=== PATIENT | male | born 1970 | race Caucasian/White ===

== ENCOUNTER 2018-12-05 00:35 | Inpatient (IN) ==
[2018-12-05] MEDS ORDERED: NS 1,000 ML IV ONE ×3 (00:51→09:46)
[2018-12-05] MEDS ORDERED: FENTANYL IV ONE (00:52)
[2018-12-05 01:36] LABS: BASO# 0.04 X1000 (0.0-0.2); BASO% 0.3 % (0.0-0.8); EOS# 0.15 X1000 (0.0-0.7); EOS% 1.1 % (0.0-10.0); HEMATOCRIT 39.1 % (42.0-52.0); HEMOGLOBIN 13.6 g/dL (14.0-18.0); IMM GRAN# 0.06 X1000 (0.0-0.04); IMM GRAN% 0.4 % (0.0-0.5); LYMPH# 1.98 X1000 (1.2-3.4); LYMPH% 14.8 % (20.5-51.1); MCH 32.3 PG (27-31); MCHC 34.8 g/dL (33-37); MCV 92.9 FL (81-99); MONO# 0.88 X1000 (0.11-0.59); MONO% 6.6 % (1.7-9.3); MPV 10.6 FL (7.4-10.4); NEUT# 10.23 X1000 (1.4-6.5); NEUT% 76.8 % (42.2-75.2); PLT 201 X1000 (130-400); RBC 4.21 XMIL (4.7-6.1); RDW 13.6 % (11.5-14.5); WBC 13.34 X1000 (4.8-10.8)
[2018-12-05 02:11] LABS: AGAP 15; ALBUMIN 3.8 g/dL (3.5-5.0); ALKALINE PHOSPHATASE 66 U/L (32-122); BUN 14 mg/dL (8-22); CALCIUM 8.5 mg/dL (8.8-10.2); CHLORIDE 99 mmol/L (98-107); COSMO 271; CREATININE 1.1 mg/dL (0.7-1.2); ESTIMATED GFR > 60; GLUCOSE 145 mg/dL (70-104); POTASSIUM 3.7 mmol/L (3.5-5.1); SODIUM 134 mmol/L (136-145); TCO2 21 mmol/L (25-35); TOTAL PROTEIN 7.2 g/dL (6.3-8.3)
[2018-12-05] MEDS ORDERED: DILAUDID IV ONE ×3 (02:26→09:22)
[2018-12-05] MEDS ORDERED: MORPHINE IV PRN (02:29)
[2018-12-05] MEDS ORDERED: DILAUDID IM PRN (02:29)
[2018-12-05] MEDS ORDERED: TYLENOL PO PRN (02:29)
--- NOTE | 2018-12-05 02:29 | PROVIDER DOCUMENTATION ---
This chart was entered by Priyanka Pena Scribe, acting as scribe for Rigo Serrato MD. HPI-Abdominal Pain/GI Problem - General Chief Complaint: Abdominal Pain Stated Complaint: PANCREATITIS Time Seen by Provider: 12/05/18 00:49 Source: patient Allergies/Adverse Reactions: Patient Allergies Allergy/AdvReac Type Severity Reaction Status Date / Time No Known Allergies Allergy Verified 12/05/18 00:42 Home Medications: Home Medication List Medication Instructions Recorded Confirmed Last Taken Type LISINOpril [Prinivil] 20 mg PO DAILY 12/05/18 12/05/18 Unknown History Omeprazole 40 mg PO DAILY 12/05/18 12/05/18 Unknown History Pravastatin Sodium 20 mg PO DAILY 12/05/18 12/05/18 Unknown History - History of Present Illness-ABD Nature of Presenting Problems: 48yom presents to ED cc epigastric abdominal pain that started after eating yogurt a few hrs ago and some vomiting. Pt reports he had pancreatitis 4yrs ago and this episode feels the same. Pt has hx of hyperlipidemia. Pt is non-toxic in appearance. Abdominal Pain Onset Location: reports: epigastric Pain Radiation: reports: no radiation Quality of Pain: reports: sharp, tightness Severity in ED: reports: moderate Onset/Duration: reports: 1-3 hours ago Timing: reports: still present, getting worse Activities at Onset: reports: eating Exposure to sick contacts?: No Modifying Factors: worse with: movement Associated Symptoms: reports: nausea, vomiting Last BM: unsure Rectal Bleeding: reports: none Rectal Pain: reports: none Emesis Description: reports: none Bruising or Bleeding Gums?: No Similar Symptoms Previously?: Yes Recently seen or treated by another doctor?: No Review of Systems - Adult - REVIEW OF SYSTEMS - ADULT Constitutional: reports: see HPI. denies: chills, fever, fatique Eyes: reports: no symptoms reported Ears, Nose, Mouth & Throat: reports: no symptoms reported Cardiovascular: reports: no symptoms reported Respiratory: reports: no symptoms reported Gastrointestinal: reports: see HPI, abdominal pain (epigastric), nausea, vomiting. denies: diarrhea Genitourinary: reports: no symptoms reported Musculoskeletal: reports: no symptoms reported Integumentary: reports: no symptoms reported Neurological: reports: no symptoms reported Psychiatric: reports: no symptoms reported Endocrine: reports: no symptoms reported Hematologic/Lymphatic: reports: no symptoms reported Allergic/Immunologic: reports: no symptoms reported All Other Systems: Reviewed and Negative Past History - Adult - PAST MEDICAL HISTORY-ADULT Review of Records: reports: Nursing Assessment Review, Medications Reviewed, Social history reviewed & non-contributory. Major Childhood Illnesses: reports: denies history Cardiovascular: reports: denies history Respiratory: reports: denies history Gastrointestinal: reports: denies history Obstetrical/Gynecological: reports: denies history Genitourinary: reports: denies history Musculoskeletal: reports: denies history Neurological: reports: denies history Endocrine/Immune: reports: denies history Other Conditions: reports: denies history - IMMUNIZATION STATUS Childhood Immunizations: See Nurse Assessment Flu Vaccine: See Nurse Assessment - FAMILY HISTORY Family History: reviewed, not pertinent - SOCIAL HISTORY Smoking: denies Physical Exam-General - PHYSICAL EXAM-ADULT Initial Vital Signs Reviewed: Yes - CONSTITUTIONAL General Appearance: alert, moderate distress. negative: anxious, combative - EYES Eyes: PERRL/EOMI, pink conjunctivae. negative: photophobia - HEAD, EARS, NOSE, MOUTH & THROAT HENMT: moist mucous membranes, normal ENT inspection. negative: angioedema - NECK Neck: non-tender, full range of motion, supple, normal inspection. negative: Brudzinski's sign, carotid bruit, C-spine tenderness - RESPIRATORY Respiratory: chest non-tender, lungs clear, normal breath sounds, no pleuratic chest pain, no respiratory distress, no accessory muscle use. negative: crackles, rales, rhonchi - CARDIOVASCULAR Cardiovascular: normal peripheral pulses, regular rate, rhythm, no edema, no gallop, no JVD, no murmur. negative: bradycardia, tachycardia - GASTROINTESTINAL (ABDOMEN) Abdominal Exam: normal bowel sounds, soft, tenderness (epigastric). negative: non tender, rigid, rebound - LYMPHATIC Lymphatic: no adenopathy. negative: striations - MUSCULOSKELETAL Back Exam: normal inspection. negative: swelling Extremity: normal range of motion, normal inspection. negative: deformity - SKIN Integumentary: normal color, normal turgor, warm/dry. negative: diaphoresis, jaundice - NEUROLOGIC Neurologic: application development intern II-XII nml as tested, grossly normal, no motor/sensory deficits. negative: facial droop, focal weakness - PSYCHIATRIC Psych/Mental Status: normal mood/affect, normal thought content, normal thought process, oriented x 3. negative: anxious Progress - PLAN OF CARE/RESULTS Progress/Plan/Lab Results: Vital Signs - 8 hr 12/05/18 00:38 Temperature 98.6 F Pulse Rate 89 Respiratory Rate 18 Blood Pressure 152/91 O2 Sat by Pulse Oximetry 97 Result Diagrams: 12/05/18 01:07 12/05/18 01:07 - EKG 1 Time of EKG reading by physician:: 01:01 EKG Read and Signed by:: Rigo Serrato EKG Interpretation (*Must complete 3 of following elements*): Abnormal Rate: 81 Rhythm: normal sinus QRS: LVH (minimal voltage criteria, may be normal variant) ST Wave: normal Departure - Departure Date of Disposition Decision: 12/05/18 Time of Disposition Decision: 02:28 DIAGNOSIS: Pancreatitis Qualifiers: Chronicity: acute Pancreatitis type: unspecified pancreatitis type Acute pancreatitis complication: no infection or necrosis Qualified Code(s): K85.90 - Acute pancreatitis without necrosis or infection, unspecified Disposition: ADMITTED INPATIENT 09 Certified Medical Emergency: Emergent Condition: Stable Referrals and Follow-Ups: Segundo Reyes MD [Primary Care Provider] - - Critical Care Note This patient required my direct & personal management of CC.: No Attestation - Physician/ MELANIE Attestation Patient care was provided by Advanced Practice Provider:: No The physician spent face to face time with patient:: Yes Advanced Practice Provider documentation review:: Supervising physician onsite and consulted in the evaluation and care of this patient. The physician did have a face to face encounter with the patient. This chart was documented by the indicated scribe, (Priyanka Pena Scribe) and accurately reflects the services I performed and decisions made by me, Rigo Serrato MD, as attested by the provider's signature.
[2018-12-05 02:37] LABS: GOT 20 U/L (10-34); GPT 21 U/L (10-44)
[2018-12-05 02:38] LABS: LIPASE 3442 U/L (13-60)
--- NOTE | 2018-12-05 06:42 | EKG Report ---
Test Performed on : 12/05/2018 00:57:13 AM Test Reason : epigastric pain Blood Pressure : / mmHG Vent. Rate : 081 BPM Atrial Rate : 081 BPM P-R Int : 148 ms QRS Dur : 086 ms QT Int : 362 ms P-R-T Axes : 051 044 037 degrees QTc Int : 420 ms Normal sinus rhythm. Minimal voltage criteria for LVH, may be normal variant Borderline ECG No previous ECGs available Unconfirmed Result
--- NOTE | 2018-12-05 09:30 | Diag Imaging Result Doc PS360 ---
CHEST-1 VIEW - 12/05/2018 INDICATION: sepsis COMPARISON: None FINDINGS: The lungs are normally expanded and clear. Heart size and mediastinal contours are normal. No pneumothorax or pleural effusion. IMPRESSION: Negative exam. Electronically signed by Tony Harding 12/05/2018 9:27 AM
[2018-12-05 10:01] LABS: BASO# 0.02 X1000 (0.0-0.2); BASO% 0.2 % (0.0-0.8); EOS# 0.03 X1000 (0.0-0.7); EOS% 0.3 % (0.0-10.0); HEMATOCRIT 41.8 % (42.0-52.0); HEMOGLOBIN 14.1 g/dL (14.0-18.0); IMM GRAN# 0.02 X1000 (0.0-0.04); IMM GRAN% 0.2 % (0.0-0.5); LYMPH% 6.5 % (20.5-51.1); MCH 31.5 PG (27-31); MCHC 33.7 g/dL (33-37); MCV 93.5 FL (81-99); MONO# 0.63 X1000 (0.11-0.59); MONO% 5.8 % (1.7-9.3); MPV 10.2 FL (7.4-10.4); NEUT# 9.39 X1000 (1.4-6.5); PLT 185 X1000 (130-400); RBC 4.47 XMIL (4.7-6.1); RDW 13.8 % (11.5-14.5); WBC 10.79 X1000 (4.8-10.8)
[2018-12-05 10:05] LABS: INR 0.9; PROTIME 12.6 Seconds (11.0-16.0); PTT 33.4 Seconds (22.3-41.8)
[2018-12-05 10:23] LABS: AGAP 14; ALBUMIN 3.5 g/dL (3.5-5.0); ALKALINE PHOSPHATASE 59 U/L (32-122); BUN 10 mg/dL (8-22); CALCIUM 7.3 mg/dL (8.8-10.2); CHLORIDE 97 mmol/L (98-107); CK PROFILE 137 U/L (24-204); COSMO 264; CREATININE 0.9 mg/dL (0.7-1.2); ESTIMATED GFR > 60; GLUCOSE 143 mg/dL (70-104); GOT 22 U/L (10-34); GPT 24 U/L (10-44); POTASSIUM 3.7 mmol/L (3.5-5.1); SODIUM 131 mmol/L (136-145); TCO2 20 mmol/L (25-35); TOTAL PROTEIN 6.9 g/dL (6.3-8.3)
[2018-12-05] MEDS: DILAUDID IV PRN ×5 (12:47→22:05)
[2018-12-05 13:00] LABS: BILIRUBIN URINE NEGATIVE (NEGATIVE); BLOOD URINE 1+ (NEGATIVE); CLARITY CLEAR (CLEAR); COLOR AMBER; GLUCOSE URINE NEGATIVE (NEGATIVE); KETONE URINE TRACE mg/dL (NEGATIVE); LEUKOCYTES URINE TRACE (NEGATIVE); NITRITE URINE NEGATIVE (NEGATIVE); PROTEIN URINE TRACE mg/dL (NEGATIVE); UROBILINOGEN URINE NORMAL
[2018-12-05 13:29] LABS: URINE EPITHELIAL CELLS <10 /HPF (<10); URINE RBC <10 /HPF (<10); URINE SOURCE CLEAN CATCH
--- NOTE | 2018-12-05 14:21 | HISTORY AND PHYSICAL ---
CHIEF COMPLAINT: Abdominal pain and vomiting. HISTORY OF PRESENT ILLNESS: This is a 48-year-old gentleman with a history of prior pancreatitis, hyperlipidemia, and hypertension who presented to the emergency room complaining of a sudden onset of abdominal pain with vomiting that started about 9 hours prior to coming to the ER. He stated he ate some yogurt and symptoms started shortly after. He stated he has had pancreatitis before. He felt that this was another bout prompting his arrival. He vomited once he denied any black or bloody vomitus or stools. He does have a prior history of pancreatitis. He stated that he recognized this abdominal pain as that prompting his visit to the ER. In the ER he was found to have a lipase of 3442 with a white count of 13.34. He was given 1 L of saline and is being admitted for further evaluation and treatment. PAST MEDICAL HISTORY: Pancreatitis, hyperlipidemia, hypertension. PAST SURGICAL HISTORY: Denies. SOCIAL HISTORY: He denies alcohol, tobacco, or illicit drug use. ALLERGIES: No known drug allergies. HOME MEDICATIONS: A list will be obtained by the nursing staff and once verified we will review and restart as appropriate. REVIEW OF SYSTEMS: Review of systems is discussed with the patient with pertinent positives stated in the HPI. He denied any syncope, dizziness, any chest pain, any palpitations, any shortness of breath, cough, fever, chills, any night sweats, recent weight loss or weight gain, any black or bloody vomitus or stools, hematuria, dysuria, frequency, urgency. PHYSICAL EXAMINATION: GENERAL: This is a 48-year-old gentleman who is lying flat in the bed in mild distress. VITAL SIGNS: Blood pressure is 133/87 with a heart rate of 103, respirations are 16, temperature is 97.8 degrees oral with room air saturations 97% to 99%. EYES: Pupils are equal, round, react to light. EOMs are intact. Sclerae are anicteric. HEENT: Head is normocephalic, atraumatic. Mucous membranes are moist. NECK: Neck is supple with trachea midline. He has no JVD. CARDIOVASCULAR: Regular rate and rhythm. S1 and S2 appreciated. EXTREMITIES: His calves are nontender bilateral. He has no lower extremity edema and peripheral pulses are palpable x4 extremities. PULMONARY: Breath sounds are clear. No increased work of breathing noted. Chest rises and falls symmetric with respiration. Chest wall is nontender to palpation. GASTROINTESTINAL: Abdomen is soft. He has got diffuse tenderness primarily in the epigastric area. It is nondistended with bowel sounds in all 4 quadrants. GENITOURINARY: He has no CVA or suprapubic tenderness. NEUROLOGIC: He is alert and oriented x3. SKIN: Skin is warm and dry. LABORATORIES: WBC is 13.3 with hemoglobin 13.6, hematocrit 39.1, and platelets of 201,000. Sodium 134, potassium 3.7, BUN 14, creatinine 1 with a glucose of 145. Lipase is 3442. ASSESSMENT AND PLAN: 1. Acute pancreatitis. 2. Leukocytosis. 3. Hyponatremia. 4. History of hyperlipidemia. 5. Gastroesophageal reflux disease. 6. Hypertension. PLAN: The patient will be admitted to the medical-surgical floor. He will be placed on telemetry. He will remain NPO.. IV hydration, IV pain and nausea medication. identify his home medications. repeat a CBC, CMP, amylase, and lipase in the morning. Lipid profile and triglycerides. For DVT prophylaxis, SCDs Further treatments pending hospital course and discussion with Dr Eagle. Dictated by CORRY Brunner for Indra Eagle MD cc: CORRY Brunner MD [facility]
[2018-12-05] MEDS ORDERED: D50W SYRINGE IV ONE (18:16)
[2018-12-05] MEDS ORDERED: LR 1,000 ML IV ONE (18:20)
[2018-12-05] MEDS: LR 1,000 ML IV SCH ×2 (18:29→19:53)
[2018-12-05] MEDS ORDERED: HUMULIN R SUBQ ONE (18:32)
[2018-12-05] MEDS: ZOFRAN IV PRN (20:15)
--- NOTE | 2018-12-05 21:45 | Diag Imaging Result Doc PS360 ---
US ABDOMEN-COMPLETE - 12/05/2018 INDICATION: acute pancreatitis COMPARISON: None FINDINGS: There is trace ascites. No gallstones in the gallbladder. No significant gallbladder distention. No biliary dilation. Common bile duct measures 5 mm. The pancreas is mostly obscured. The liver, spleen, and both kidneys are normal. Spleen size is 11.3 x 4.9 cm. Aorta, IVC, and main portal vein are patent. IMPRESSION: Trace ascites. Normal-appearing gallbladder. Electronically signed by Tony Harding 12/05/2018 9:42 PM
[2018-12-06] MEDS: DILAUDID IV PRN ×11 (00:06→23:04)
[2018-12-06] MEDS: LR 1,000 ML IV SCH (02:01)
[2018-12-06 05:40] LABS: HEMATOCRIT 39.3 % (42.0-52.0); HEMOGLOBIN 12.7 g/dL (14.0-18.0); MCHC 32.3 g/dL (33-37); MPV 10.7 FL (7.4-10.4); RBC 3.97 XMIL (4.7-6.1); RDW 14.1 % (11.5-14.5)
[2018-12-06 06:23] LABS: ESTIMATED GFR > 60
[2018-12-06 06:25] LABS: AGAP 10; ALB/GLOB RATIO 0.8; ALBUMIN 2.9 g/dL (3.5-5.0); ALKALINE PHOSPHATASE 47 U/L (32-122); AMYLASE 238 U/L (20-200); BUN 10 mg/dL (8-22); CHLORIDE 105 mmol/L (98-107); COSMO 282; CREATININE 1.1 mg/dL (0.7-1.2); GLUCOSE 121 mg/dL (70-104); GOT 18 U/L (10-34); GPT 14 U/L (10-44); MAGNESIUM 1.4 mg/dL (1.5-2.7); POTASSIUM 3.5 mmol/L (3.5-5.1); SODIUM 141 mmol/L (136-145); TCO2 26 mmol/L (25-35); TOTAL BILIRUBIN 0.75 mg/dL (0.20-1.00); TOTAL PROTEIN 6.5 g/dL (6.3-8.3)
[2018-12-06 06:26] LABS: C REACTIVE PROT QUANT 244.27 mg/L (0.00-5.00)
[2018-12-06 06:45] LABS: CALCIUM 7.1 mg/dL (8.8-10.2)
--- NOTE | 2018-12-06 09:03 | HISTORY AND PHYSICAL ---
ADDENDUM: Patient was seen and examined by myself on the . He has a known history of pancreatitis approximately 4 years ago secondary to triglycerides. He states that his triglycerides have been as high as 10,000. He presented with abdominal pain, nausea, vomiting. His triglycerides on exam were 2200. We will admit him and keep him NPO, pain control, and follow. Please see full note. cc: MD Segundo Banuelos MD
[2018-12-06] MEDS ORDERED: HUMULIN R 100 UNIT in NS 100 ML IV SCH (09:15)
[2018-12-06] MEDS ORDERED: D5 NS + KCL 20 MEQ 1,000 ML IV SCH (09:15)
[2018-12-06] MEDS ORDERED: D50W SYRINGE IV ONE (09:21)
--- NOTE | 2018-12-06 09:53 | PROGRESS NOTE ---
DATE: 12/06/2018 SUBJECTIVE: The patient was admitted yesterday with acute pancreatitis secondary to triglycerides. He has had this problem before. Yesterday's labs from the emergency room and in the hospital were reviewed. The patient and his family were interviewed. Pain level is 6 or 7. OBJECTIVE: Vital signs: Temperature 99.3, pulse 110, respiratory rate 17, blood pressure 137/81, 91% saturated on room air. General: The patient is easily arousable. He is alert, conversive and appropriate. He is lying very still. Lungs: Clear to auscultation. Cardiovascular: Regular tachycardia. Abdomen: Bowel sounds are present. He is diffusely moderate to severely tender. His abdomen is slightly distended. LABORATORY: White cell count 9, hematocrit 39.3, BUN 10, creatinine 1.1. Blood sugar was 121. Triglyceride level was 1122. Amylase 238. ASSESSMENT AND PLAN: 1. The patient's pancreatitis persists. His triglyceride level is on the downward trend, but he is still having some pain. In discussion with his family the previous time that this occurred with elevated triglycerides, the thing that seemed to hasten his recovery was insulin drip. This was recommended by the multiple articles on NCBI. At present, Hudson's criteria is not calculable because of we did not get LDH. The remainder of his trackable parameters in regard to Rosa's criteria seem to be falling within a reasonable range. We will start D5 normal saline drip with frequent blood sugars and titratable regular insulin drip. Hopefully, this will speed the breakdown of triglycerides and help to hasten an end to his pain. He still has Dilaudid every 2 hours. We will recheck full lab work tomorrow morning. 2. The patient's hypertensive medications are being held. 3. Levothyroxine is being held as well. cc: Segundo Reyes MD
[2018-12-06] MEDS: HUMULIN R 100 UNIT in NS 100 ML IV SCH (10:26)
[2018-12-06] MEDS: D5 NS + KCL 20 MEQ 1,000 ML IV SCH (18:03)
[2018-12-06] MEDS: ZOFRAN IV PRN (18:15)
[2018-12-07] MEDS: DILAUDID IV PRN ×9 (00:56→18:44)
[2018-12-07] MEDS: D5 NS + KCL 20 MEQ 1,000 ML IV SCH ×2 (04:07→08:13)
[2018-12-07 05:27] LABS: BASO# 0.02 X1000 (0.0-0.2); BASO% 0.2 % (0.0-0.8); EOS% 3.4 % (0.0-10.0); HEMATOCRIT 34.1 % (42.0-52.0); HEMOGLOBIN 10.8 g/dL (14.0-18.0); LYMPH# 1.02 X1000 (1.2-3.4); LYMPH% 11.6 % (20.5-51.1); MCH 31.8 PG (27-31); MCHC 31.7 g/dL (33-37); MCV 100.3 FL (81-99); MONO# 0.55 X1000 (0.11-0.59); MONO% 6.3 % (1.7-9.3); MPV 10.7 FL (7.4-10.4); NEUT# 6.89 X1000 (1.4-6.5); NEUT% 78.5 % (42.2-75.2); PLT 158 X1000 (130-400); RDW 13.9 % (11.5-14.5); WBC 8.78 X1000 (4.8-10.8)
[2018-12-07 06:00] LABS: ESTIMATED GFR > 60
[2018-12-07 06:11] LABS: AGAP 10; ALB/GLOB RATIO 0.8; ALBUMIN 2.7 g/dL (3.5-5.0); ALKALINE PHOSPHATASE 50 U/L (32-122); AMYLASE 71 U/L (20-200); BUN 7 mg/dL (8-22); CALCIUM 7.2 mg/dL (8.8-10.2); CHLORIDE 106 mmol/L (98-107); COSMO 275; CREATININE 0.9 mg/dL (0.7-1.2); GLUCOSE 123 mg/dL (70-104); GOT 17 U/L (10-34); GPT 9 U/L (10-44); LIPASE 122 U/L (13-60); MAGNESIUM 1.6 mg/dL (1.5-2.7); POTASSIUM 3.5 mmol/L (3.5-5.1); SODIUM 138 mmol/L (136-145); TCO2 22 mmol/L (25-35); TOTAL BILIRUBIN 0.47 mg/dL (0.20-1.00); TOTAL PROTEIN 6.3 g/dL (6.3-8.3); TRIGLYCERIDES 449 mg/dL (39-160)
[2018-12-07] MEDS: HUMULIN R 100 UNIT in NS 100 ML IV SCH (06:25)
[2018-12-07] MEDS ORDERED: D5 NS + KCL 20 MEQ 1,000 ML IV SCH (09:22)
--- NOTE | 2018-12-07 11:57 | Diag Imaging Result Doc PS360 ---
EXAM: CT ABD/PELVIS W/IV CONT ONLY 12/07/2018 HISTORY: pancreatitis TECHNIQUE: This exam was performed using automated exposure control, adjustment of mA or kV according to patient size, and/or use of iterative reconstruction technique. COMMENT: There are no previous studies available for comparison. There is bibasilar atelectasis and pleural effusions. There is ascites. There are fluid collections surrounding the body of the pancreas particularly between the pancreas and the distal stomach and duodenum and in the right anterior pararenal space. There is fluid collection in the root of the mesentery and transverse mesocolon. There is also perinephric fluid on the right. The aorta is not distended. The mesenteric and renal arteries appear to be patent. There are two renal arteries on the right. There is some decreased attenuation in the neck of the pancreas which may be indicative of necrosis. There are no definite abscesses. The liver is normal in appearance. There is no evidence of biliary dilatation and the portal vein is patent. The gallbladder wall is not appreciably thickened but there is fluid around the gallbladder. There are no appreciable stones. The adrenal glands are not enlarged. There is a cyst in the lateral left kidney. There are several prominent mesenteric nodes none of which exceed a centimeter in size, otherwise there is no evidence of significant adenopathy. Pelvis: There is free fluid in the pelvis along the paracolic gutters and in the rectovesical pouch. The urinary bladder is unremarkable. There are bilateral fat-containing inguinal hernias. There is no evidence of appendicitis. There is no evidence of acute bony abnormality. IMPRESSION: Pancreatitis with bilateral basilar atelectasis, pleural effusions, and ascites. The possibility of mild necrosis in the neck of the pancreas cannot the excluded. Electronically signed by Chai Barclay 12/07/2018 11:55 AM
--- NOTE | 2018-12-07 22:16 | PROGRESS NOTE ---
DATE: 12/07/2018 SUBJECTIVE: The patient states he is feeling somewhat better as he gestures and moves with his hands and touches own abdomen I can tell that he is getting some relief. He still cody his pain as severe but he has been able to get up and go to the restroom. He has no new complaints or needs. OBJECTIVE: Vital signs: Temperature is 98.3 degrees, 94, 14, 150/90, 93% saturated on room air . General: The patient is alert, oriented, conversive and appropriate. He is more lively than he was yesterday in that he has just gotten a pain shot. HEENT: Sclerae are anicteric. Lungs: Are clear. Cardiovascular: Regular. Abdomen: Is protuberant and slightly distended. He is less tender as I am able to lay my stethoscope on without him flinching. Bowel sounds are present. LABORATORY: White cell count is 8.7, hemoglobin 10.8, platelet count 158,000. Sodium was 138, potassium 3.5, BUN is 7, creatinine 0.9. Serum blood sugars have been in the low 100s, calcium 7.2, magnesium is normal, liver function tests are normal. Triglycerides are 449, lipase is 122. ASSESSMENT/PLAN: 1. The patient's acute pancreatitis is improving albeit slowly. He has had considerable input of fluid with very low urine output. I suspect that he is 3rd spacing a lot of the fluids. I discussed with the patient further imaging to make sure there was not any hemorrhaging and he agreed to undergo CT scanning of the abdomen and pelvis. We will continue the patient NPO and discontinue D5 normal saline and insulin drip based on numbers today. We hope he will have continued resolution of the pain. No change in pain medication management. 1. The patient has hypertension and may need some coverage for accelerated blood pressure. We will continue to monitor this. 2. We will check a postvoid residual due to the patient's low urine output and it was essentially negative by report although I cannot find the exact numbers anywhere in the electronic chart. 3. We are still holding the patient's thyroid medication which we may restart when he is taking p.o. 4. The patient still requires inpatient monitoring and [facility]. Hopefully we can discharge in the next 24 to 48 hours. ADDENDUM: Patient underwent CT scan today. He was found to have gross 3rd spacing of fluid throughout the abdomen and small pleural effusions. He had clear evidence of pancreatitis on the CT scan but no other acute pathology was identified. cc: Segundo Reyes MD
[2018-12-08 07:28] LABS: BASO# 0.03 X1000 (0.0-0.2); BASO% 0.4 % (0.0-0.8); EOS# 0.42 X1000 (0.0-0.7); HEMATOCRIT 33.4 % (42.0-52.0); HEMOGLOBIN 10.6 g/dL (14.0-18.0); MCH 31.5 PG (27-31); MCHC 31.7 g/dL (33-37); MCV 99.4 FL (81-99); MONO# 0.61 X1000 (0.11-0.59); MONO% 7.2 % (1.7-9.3); MPV 10.2 FL (7.4-10.4); NEUT# 6.29 X1000 (1.4-6.5); NEUT% 74.4 % (42.2-75.2); PLT 189 X1000 (130-400); RBC 3.36 XMIL (4.7-6.1); RDW 13.5 % (11.5-14.5); WBC 8.45 X1000 (4.8-10.8)
[2018-12-08 07:39] LABS: AGAP 9; ALB/GLOB RATIO 0.8; ALBUMIN 3.2 g/dL (3.5-5.0); ALKALINE PHOSPHATASE 60 U/L (32-122); AMYLASE 58 U/L (20-200); BANDS 12 % (0-1); BUN 7 mg/dL (8-22); CALCIUM 8.1 mg/dL (8.8-10.2); CHLORIDE 102 mmol/L (98-107); COSMO 271; CREATININE 0.8 mg/dL (0.7-1.2); EOS 4 % (1-10); ESTIMATED GFR > 60; GLUCOSE 114 mg/dL (70-104); GOT 20 U/L (10-34); GPT 11 U/L (10-44); LIPASE 93 U/L (13-60); LYMPHS 20 % (21-51); POTASSIUM 3.4 mmol/L (3.5-5.1); SEGS 62 % (42-75); SODIUM 136 mmol/L (136-145); TCO2 25 mmol/L (25-35); TOTAL BILIRUBIN 0.39 mg/dL (0.20-1.00); TRIGLYCERIDES 356 mg/dL (39-160)
[2018-12-08] MEDS ORDERED: MAGNESIUM SULFATE 1 GM/D5W 1 GM/100 ML IVPB IV ONE (08:14)
[2018-12-08] MEDS ORDERED: POTASSIUM CHLORIDE 40 MEQ/SWI 40 MEQ/100 ML IVPB IV ONE (08:14)
[2018-12-08] MEDS ORDERED: PRAVACHOL PO SCH (09:00)
[2018-12-08] MEDS ORDERED: PRINIVIL PO SCH (09:00)
[2018-12-08] MEDS ORDERED: SYNTHROID PO SCH (09:00)
[2018-12-08] MEDS ORDERED: PRILOSEC PO SCH (09:00)
[2018-12-08] MEDS ORDERED: KLOR-CON PO ONE (10:49)
[2018-12-08 11:11] VITALS: BP 152/85
--- NOTE | 2018-12-08 19:17 | DISCHARGE SUMMARY ---
ADMISSION DATE: 12/05/2018 DISCHARGE DATE: 12/08/2018 DISCHARGE DIAGNOSES: 1. Acute pancreatitis with noninfectious necrosis. 2. Hypertriglyceridemia. 3. Hypertension. 4. Atrophy of thyroid. HISTORY OF PRESENT ILLNESS: This 48-year-old white male was admitted at [facility] 9 hours after onset of acute abdominal pain consistent with previous pancreatitis. He has hypertriglyceridemia and has had this before. He also reports he has been on a business trip under high stress of late. He had drunk over the past week 1 bottle of wine. HOSPITAL COURSE: The patient was admitted to [facility] and then transferred to [facility] under my care. I saw him on 12/05 and he was still in a considerable amount of pain. Triglycerides were up in the 1400 range. We started him on insulin and glucose drip, and rapidly decreased his triglyceride level. He continued to have abdominal pain but improved. On the day of discharge I related to him that I think we should really take this slow, since his enzyme levels were still elevated. He stated most of his pain was gone. When I suggested a course of action, he said, "No, I'm going to be discharged today." Unfortunately, he was not very nice about that and I ordered him some electrolyte replacement through the IV as well as a diet, which he seemed to tolerate well. We discharged him after lunch. DISCHARGE MEDICATIONS: The only addition to his medical regimen is fenofibrate 145 mg on a daily basis. DISPOSITION: We will see him back in a couple of months in the office. He is aware that if he has recurrence of his abdominal pain, he can contact me at any time. I also had a conversation with him about the risks of continuing drinking with his high triglyceride levels and the threat of pancreatitis. I am not sure that he has a firm grasp on the seriousness of his condition or its ramifications for the future. cc: Segundo Reyes MD
== END 2018-12-08 13:50 | disposition home or self-care (01) | DRG 439 ==
LOC: P.ED 00:35 → SUATTDRO 03:18 → P.EDIPHOLD 03:18 → P.MEDSURG 08:40 → 3S 21:29
PROVIDERS: ADMIT Internal Medicine; ATTEND Internal Medicine
CPT/HCPCS: 71010; 71045; 74177; 76700; 80053; 81001; 82150; 82550; 82948; 83605; 83690; 83735; 84478; 84484; 85025; 85027; 85610; 85730; 86140; 87040; 93005; 96361; 96374; 96375; 96376; 99285; A9270; J1170; J2405; J3010; J3475; J3480; J7030; J7042; J7120; Q9967; XXXXX